=== PATIENT | female | born 1985 | race Caucasian/White ===

== ENCOUNTER 2017-06-09 13:43 | Emergency (ER) | payer BC, OTHER ==
[~2017-06-09] VITALS: Ht 157.5 cm; Wt 55.4 kg
[2017-06-09 13:46] VITALS: Ht 157.5 cm; Wt 55.4 kg
[2017-06-09] MEDS ORDERED: AMOX1TAB10 PO (14:19)
[2017-06-09] MEDS ORDERED: FLUT9.9S NASAL (14:20)
[2017-06-09] MEDS ORDERED: CETI10CA PO (14:20)
[2017-06-09] MEDS ORDERED: NAPR-260 PO (14:22)
--- NOTE | 2017-06-09 15:32 | ERD ---
ER Documentation Chief Complaint Chief Complaint Pt presents with Sinus pain with chills X 3-4 days. HPI This is a 32-year-old female who presents to the emergency department today complaining of some sinus pressure and pain and headache for the past 3-4 days. States she is taking Motrin and improves the symptoms slightly but then the pain returns. States that she has felt chilled but she is unsure if she has had a fever. States she has a slight sore throat but otherwise has no other symptoms. Denies any dizziness, blurred vision, vomiting. ROS All systems reviewed and are negative except as per history of present illness. Medications Home Meds Active Scripts Naproxen* (Naprosyn*) 500 Mg Tablet, 500 MG PO BID Y for PAIN AND/OR INFLAMMATION, #30 TAB Prov:KAITLYN DARDEN PA-C 06/09/17 Cetirizine Hcl* (Zyrtec*) 10 Mg Capsule, 10 MG PO DAILY, #10 TAB.CHEW Prov:KAITLYN DARDEN PA-C 06/09/17 Fluticasone Propionate (Flonase Allergy Relief) 9.9 Ml [place].susp, 2 SPRAY NASAL DAILY, #1 BOTTLE TO EACH NOSTRIL Prov:KAITLYN DARDEN PA-C 06/09/17 Amoxicillin/Potassium Clav (Amox-Clav 875-125 mg Tablet) 875-125 mg Tab, 1 TAB PO BID for 10 Days, #14 TAB Prov:KAITLYN DARDEN PA-C 06/09/17 PMhx/Soc Medical and Surgical Hx: pt denies Medical Hx, pt denies Surgical Hx Hx Alcohol Use: No Hx Substance Use: No Hx Tobacco Use: Yes (1PACK/DAY) Smoking Status: Never smoker Physical Exam Vitals Vital Signs Date Time Temp Pulse Resp B/P Pulse Ox O2 Delivery O2 Flow Rate FiO2 06/09/17 13:46 98.7 112 18 140/82 98 Physical Exam Const: NAD Head: Atraumatic frontal and maxillary tenderness to palpation Eyes: Normal Conjunctiva. PERRLA, EOM intact ENT: Ears TMs normal. Nose no drainage. Throat erythema no exudate no vesicles Neck: Full range of motion..~ No meningismus. Resp: Clear to auscultation bilaterally Cardio: Regular rate and rhythm, no murmurs Abd: Soft, non tender, non distended. Normal bowel sounds Skin: No petechiae or rashes Back: No midline or flank tenderness Ext: No cyanosis, or edema Neur: Awake and alert no focal neurologic deficits. No gait ataxia. Psych: Normal Mood and Affect Procedures/MDM This is a 32-year-old female who presents the emergency department today complaining of headache and sinus pressure for the past 3-4 days. Patient's physical exam is essentially benign with the exception of tenderness along her frontal maxillary sinuses. I asked patient if she had any dental problems and she stated that she thought that she initially thought that she had a tooth infection. Patient does have poor dentition but I do not see evidence of an abscess at this time. She is afebrile and otherwise well-appearing. I do not feel the patient requires further workup or imaging at this time. Her symptoms at this time appear most consistent with acute sinusitis versus sinus headache. Patient has no focal neurologic deficits and no gait ataxia. She denies any blurred vision, dizziness or vomiting and did not feel that she requires a head CT scan at this time. Low suspicion for acute hemorrhage, mass, abscess, meningitis. Patient was given a prescription for Augmentin that would also cover her for any dental infection and I have also given her a prescription for Flonase and Zyrtec. I have instructed her to try those first prior to taking the antibiotics. She may take those if there is no improvement in symptoms. Patient understood and agreed with the plan. I have low suspicion for sepsis, severe acute bacterial infection. She was counseled for greater than 3 minutes on smoking cessation. At this time the patient is stable for discharge and outpatient management. Patient should follow up with their PCP in the next 1-2 days. They may return to the emergency department sooner for any persistent or worsening of symptoms. Patient understood and agreed with the plan. Departure Diagnosis: Primary Impression: Sinus pain Condition: Fair Patient Instructions: Sinusitis, Abx Tx Referrals: COMM[facility]ITY [facility] YOU HAVE RECEIVED A MEDICAL SCREENING EXAM AND THE RESULTS INDICATE THAT YOU DO NOT HAVE A CONDITION THAT REQUIRES URGENT TREATMENT IN THE EMERGENCY DEPARTMENT. FURTHER EVALUATION AND TREATMENT OF YOUR CONDITION CAN WAIT UNTIL YOU ARE SEEN IN YOUR DOCTORS OFFICE WITHIN THE NEXT 1-2 DAYS. IT IS YOUR RESPONSIBILITY TO MAKE AN APPOINTMENT FOR FOLOW-UP CARE. IF YOU HAVE A PRIMARY DOCTOR --you should call your primary doctor and schedule an appointment IF YOU DO NOT HAVE A PRIMARY DOCTOR YOU CAN CALL OUR PHYSICIAN REFERRAL HOTLINE AT IF YOU CAN NOT AFFORD TO SEE A PHYSICIAN YOU CAN CHOSE FROM THE FOLLOWING [facility] [id number] [facility] [address] [facility] [address] [facility] [address] [facility] [address] [facility]. [facility] [address] Additional Instructions: Call your primary care doctor TOMORROW for an appointment during the next 1-2 days.See the doctor sooner or return here if your condition worsens before your appointment time. Take Zyrtec and Flonase as prescribed. Take antibiotics as prescribed if no improvement in a couple of days. Take Naprosyn or tylenol or motrin for pain KAITLYN DARDEN PA-C Jun 09, 2017 15:31
== END 2017-06-09 14:25 | disposition home or self-care (01) ==
LOC: FTE 13:43
DX: J34.89 Other specified disorders of nose and nasal sinuses (principal)
CPT/HCPCS: 99283